=== PATIENT | female | born 1965 | race African-American/Black ===

== ENCOUNTER 2016-07-22 01:51 | Emergency (ER) | payer SELFPAY ==
[~2016-07-22] VITALS: Ht 170.2 cm; Wt 90.7 kg
[2016-07-22 02:11] VITALS: BP 129/64
[2016-07-22] MEDS ORDERED: AUGMENTIN 875-1 EAC1 ORAL (02:51)
[2016-07-22] MEDS ORDERED: HYDROCODON-ACE1 EA15 ORAL (02:51)
[2016-07-22] MEDS ORDERED: CORTISPORIN EAR10 ML RIGHT EAR (02:51)
[2016-07-22] MEDS ORDERED: NEXAFED30 MG ORAL (02:51)
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
[2016-07-22 02:58] VITALS: BP 122/71
== END 2016-07-22 03:06 | disposition home or self-care (01) ==
LOC: EMR 02:34
DX: H66.91 Otitis media, unspecified, right ear (principal); T16.1XXA Foreign body in right ear, initial encounter; X58.XXXA Exposure to other specified factors, initial encounter; Y93.9 Activity, unspecified; Y92.9 Unspecified place or not applicable
CPT/HCPCS: 69210